=== PATIENT | female | born 1975 | race African-American/Black ===

== ENCOUNTER → 2018-05-17 | Outpatient (CLI) | payer OTHER | LOC: M SLEEP 19:59 | DX: G47.61 Periodic limb movement disorder (principal); R06.83 Snoring; R40.0 Somnolence | CPT/HCPCS: 95810 ==

== ENCOUNTER → 2018-12-23 | Outpatient (CLI) | payer OTHER | LOC: M RAD 16:59 | PROVIDERS: ATTEND Physician Assistant | DX: Z12.31 Encounter for screening mammogram for malignant neoplasm of breast (principal) ==

== ENCOUNTER 2020-04-12 17:01 | Emergency (ER) | payer OTHER ==
[~2020-04-12] VITALS: Ht 149.9 cm; Wt 61.1 kg
[2020-04-12] MEDS ORDERED: METH1TAB40 PO (17:10)
[2020-04-12] MEDS ORDERED: KETOROLAC 30 MG/ML 1ML VIAL IV ONE (18:00)
[2020-04-12] MEDS ORDERED: NS 1,000 ML IV ONE (18:00)
[2020-04-12 18:30] LABS: BASO % 0.4 % (0.0-1.0); EOS # 0.1 10^3/uL (0.0-0.5); EOS % 0.9 % (0.0-3.0); HEMATOCRIT 39.1 % (36.0-47.0); HEMOGLOBIN 12.6 g/dl (12.0-15.5); LYMPH # 2.3 10^3/uL (1.5-5.0); MEAN CORPUSCULAR HEMOGLOBIN 27.3 pg (27.0-33.0); MEAN CORPUSCULAR HGB CONC 32.2 g/dl (32.0-36.5); MEAN CORPUSCULAR VOLUME 84.8 fl (80.0-96.0); MONO # 0.3 10^3/uL (0.0-0.8); MONO % 4.1 % (0.0-5.0); NEUTROPHILS # 5.4 10^3/uL (1.5-8.5); NEUTROPHILS % 66.5 % (36.0-66.0); PLATELET COUNT, AUTOMATED 320 10^3/uL (150-450); RED BLOOD COUNT 4.61 10^6/uL (4.00-5.40); WHITE BLOOD COUNT 8.1 10^3/uL (4.0-10.0)
[2020-04-12 18:51] LABS: ALBUMIN 4.1 GM/DL (3.2-5.2); BILIRUBIN,DIRECT 0.1 MG/DL (0.0-0.2); BILIRUBIN,TOTAL 0.5 MG/DL (0.2-1.0); TOTAL PROTEIN 7.9 GM/DL (6.4-8.2)
--- NOTE | 2020-04-12 19:41 | REPVR ---
PROCEDURE INFORMATION: Exam: US Nonobstetric Pelvis; Complete Exam date and time: 04/12/2020 6:54 PM Age: 45 years old Clinical indication: Pelvic pain; Additional info: Llq abd pain, sharp, radiates to back TECHNIQUE: Imaging protocol: Transabdominal pelvic nonobstetric ultrasound. Complete exam. Real time ultrasound with image documentation. COMPARISON: No relevant prior studies available. FINDINGS: Uterus/cervix: The uterus is enlarged, measuring 14.3 x 5.3 x 6.2 cm. There is a large hypoechoic mass in the uterus which obscures or displaces the endometrium measuring 4.6 x 4.3 by 4.2 cm. This is mildly heterogeneous but predominantly hypoechoic. There is some internal color flow. The endometrium inferior to the uterine mass lesion measures 4 mm in thickness and is normal in echogenicity where visualized. Right adnexa: The right ovary is normal in size and echogenicity, measuring 3.5 x 2.1 x 2.2 cm. Left adnexa: The left ovary contains a 1.9 cm hypoechoic structure which may have some internal echoes but does not clearly have internal color flow. It is unclear whether the appearance of internal echoes is artifactual. This may represent a dominant follicle, although the questionable internal echoes make it difficult to exclude a small hemorrhagic cyst or endometrioma. Intraperitoneal space: No free fluid. IMPRESSION: 1. Enlarged uterus with large slightly heterogeneous but overall hypoechoic mass in the uterine fundus measuring 4.6 cm which obscures or displaces the endometrium. While this may represent a fundal fibroid, potentially with submucosal component, the less likely possibility of uterine neoplasm is not completely excluded. Suggest further characterization non emergently with female pelvic MR. 2. 1.9 cm hypoechoic structure in the left ovary which may contain some internal echoes but has no internal color flow. This may represent a dominant follicle. The appearance of internal echoes could be artifactual, but if real raises the possibility of a small hemorrhagic cyst or endometrioma. Electronically signed by: Robyn Avalos On 04/12/2020 19:41:56 PM
--- NOTE | 2020-04-12 19:55 | REP ---
INDICATION: LLQ pain. COMPARISON: None. TECHNIQUE: Single frontal view of the abdomen and pelvis is performed. FINDINGS: Bowel gas pattern is normal with no evidence of bowel obstruction. Multiple phleboliths are seen in the pelvis. The visualized osseous structures are unremarkable. IMPRESSION: Unremarkable KUB. <Electronically signed by Edson Granda > 04/12/201950
[2020-04-12] MEDS ORDERED: NAPR-837 PO (20:09)
[2020-04-12 20:16] VITALS: BP 138/84
--- NOTE | 2020-04-13 13:52 | ED PDOC ---
Post-Departure Follow-Up pelvic us faxed to [facility] for fu Sohail Venegas MD Apr 13, 2020 13:52
== END 2020-04-12 20:28 | disposition home or self-care (01) ==
LOC: M ED 17:01
DX: N85.8 Other specified noninflammatory disorders of uterus (principal); R10.32 Left lower quadrant pain; M54.5 Low back pain; F17.200 Nicotine dependence, unspecified, uncomplicated; Z87.39 Personal history of other diseases of the musculoskeletal system and connective tissue; Z87.59 Personal history of other complications of pregnancy, childbirth and the puerperium; Z79.899 Other long term (current) drug therapy
CPT/HCPCS: 74018; 76856; 80076; 81001; 83690; 85025; 96361; 96374; 99284; J1885

== ENCOUNTER → 2020-07-06 | Outpatient (CLI) | payer OTHER ==
[~2020-07-06] MED LIST: METH-1164 PO; NAPR-837 PO
--- NOTE | 2020-07-06 10:35 | REPMRS ---
Patient History The patient states she has not had a clinical breast exam in over a year. Family history of breast cancer in maternal grandmother. Digital Woman Screen Mammo: July 06, 2020 - Exam #: [id number] Bilateral CC and MLO view(s) were taken. Technologist: Mayte Meléndez, Technologist Prior study comparison: December 23, 2018, bilateral digital mammo screening bilat, performed at [facility]. FINDINGS: There are scattered fibroglandular densities. The Volpara volumetric breast density category is:B. There is a grouping of 5-6 predominantly punctate microcalcifications in the posterior 3rd of the right breast upper outer quadrant at approximately 11 o'clock which merits further evaluation. There has been no other change in the appearance of the mammogram from the prior studies. There is a mild amount of scattered fibroglandular density which is fairly symmetric. There is no other interval development of dominant mass, architectural distortion, or grouped microcalcification suggestive of malignancy. 3-D tomosynthesis shows no additional findings. Assessment: BI-RADS/ACR category 0 mammogram, Incomplete: Need additional imaging evaluation and/or prior mammograms for comparison. Recommendation Special view mammogram of the right breast. This patient's [facility] Lifetime Breast Cancer Risk is estimated at 15.7 %. This mammogram was interpreted with the aid of an FDA-approved computer-aided dectection system. Electronically Signed By: Prashant Sands MD 07/06/20 2155
== END ==
LOC: M WHC 09:15
PROVIDERS: ATTEND Physician Assistant Medical
DX: Z12.31 Encounter for screening mammogram for malignant neoplasm of breast (principal); N60.11 Diffuse cystic mastopathy of right breast; R92.8 Other abnormal and inconclusive findings on diagnostic imaging of breast
CPT/HCPCS: 77063; 77067; G0463

== ENCOUNTER → 2020-07-08 | Outpatient (CLI) | payer SELFPAY | LOC: M LABSMTC 13:29 | PROVIDERS: ATTEND Pediatrics | DX: Z20.822 Contact with and (suspected) exposure to COVID-19 (principal) ==

== ENCOUNTER → 2020-07-21 | Outpatient (CLI) | payer OTHER ==
--- NOTE | 2020-07-21 10:36 | REP ---
INDICATION: ADDL VIEWS/RIGHT BREAST. Recent screening mammography BI-RADS category 0 incomplete because of microcalcifications. Diagnostic imaging was recommended. COMPARISON: Comparison mammography 06 July 2020. 23 December 2018 mammography is also reviewed. TECHNIQUE: Magnified focal spot-compression CC, mL, and MLO views of the right breast are obtained. This mammogram was interpreted with the aid of an FDA-approved computer-aided detection system. FINDINGS: Scattered fibroglandular density pattern is again seen. Magnified focal spot-compression images confirm the presence of a grouping of microcalcifications which are predominantly punctate but of different sizes. There are 5-6 microcalcifications in a 1 cm grouping. As these are new, the should be considered as potentially suspicious. IMPRESSION: BIRADS/ACR category 4 suspicious right mammographic . micro calcific grouping confirmed. Histologic sampling is recommended.. This patient's Tyrer-Cuzick lifetime breast cancer risk assessment score is 6.8%. RECOMMENDATION: Stereotactic needle biopsy is recommended right breast for microcalcifications. Marker clip placement and post clip placement mammography recommended.. The patient letter being requested is M4. <Electronically signed by Prashant Sands > 07/21/20 [id number]
== END ==
LOC: M WHC 09:35
PROVIDERS: ATTEND Physician Assistant Medical
DX: R92.2 Inconclusive mammogram (principal); N60.11 Diffuse cystic mastopathy of right breast

== ENCOUNTER → 2020-08-16 | Outpatient (CLI) | payer OTHER ==
--- NOTE | 2020-08-16 10:03 | REP ---
INDICATION: RT BREAST MICROCALCIFICATIONS,POST STEREOTACTIC BIOPSY. Marker clip placement views. COMPARISON: Comparison mammography July 21, 2020 and July 06, 2020. TECHNIQUE: Craniocaudal and mediolateral views of the right breast are obtained. This mammogram was interpreted with the aid of an FDA-approved computer-aided detection system. FINDINGS: Craniocaudal and mediolateral views of the right breast demonstrate the needle biopsy marker clip in good position at the site where previous study showed the micro calcific grouping. There are fewer microcalcifications postprocedure, only 1 definite microcalcification persists. IMPRESSION: Marker clip in good position. <Electronically signed by Prashant Sands > 08/16/20 1000
--- NOTE | 2020-08-16 10:05 | REP ---
INDICATION: RT BREAST MICROCALCIFICATIONS,STEREOTACTIC BIOPSY. COMPARISON: Comparison mammography July 21, 2020. Micro calcific grouping right breast.. TECHNIQUE: Single specimen radiograph. FINDINGS: Specimen radiography demonstrates microcalcifications from the target grouping in 2 of the removed specimens. IMPRESSION: Specimen radiography demonstrates microcalcifications from the biopsy target. <Electronically signed by Prashant Sands > 08/16/20 1006
[2020-08-16 10:24] VITALS: BP 122/68
--- NOTE | 2020-08-16 15:27 | REP ---
INDICATION: RT BREAST MICROCALCIFICATIONS,STEREOTACTIC BIOPSY. COMPARISON: None. TECHNIQUE: The procedure was performed under the direct supervision of Dr. Sands. The patient has a history of a grouping of 5-6 predominantly punctate microcalcifications in the posterior 3rd of the right breast upper outer quadrant seen on a previous mammogram dated 07/21/2020. The risks and benefits of the procedure were explained to the patient and informed consent was obtained. A craniocaudal approach was utilized. The calcifications were localized using stereotactic mammographic guidance. 1% Xylocaine was used as a local anesthetic. An 10 gauge, suction assisted Mammotome needle was inserted and 6 core biopsy samples were obtained. Specimen radiograph demonstrates the presence of calcifications to be within the specimen. A marker clip (HydroMARK shape 3) was placed at the biopsy site. The patient tolerated the procedure well and there were no immediate complications. After the appropriate amount of monitored convalescence, the patient was discharged from the department. FINDINGS: None IMPRESSION: Stereotactic right breast biopsy with marker clip placement. (HydroMARK shape 3) <Electronically signed by Angelito Jensen > 08/16/20 1516 <Electronically signed by Prashant Sands > 08/16/20 1520
== END | disposition home or self-care (01) ==
LOC: M WHCPRO 08:53
PROVIDERS: ATTEND Physician Assistant Medical
DX: N60.11 Diffuse cystic mastopathy of right breast (principal); R92.0 Mammographic microcalcification found on diagnostic imaging of breast

== ENCOUNTER 2020-09-17 20:44 | Emergency (ER) | payer OTHER ==
[~2020-09-17] VITALS: Ht 149.9 cm; Wt 55.9 kg
[2020-09-17] MEDS ORDERED: KETOROLAC 30 MG/ML 1ML VIAL IM ONE (21:20)
[2020-09-17] MEDS ORDERED: KETO10TAB PO (21:20)
[2020-09-17] MEDS ORDERED: ACETAMINOPHEN TAB 650MG DOSE (2X325MG) PO ONE (21:20)
[2020-09-17] MEDS ORDERED: MECLIZINE 25 MG TABLET PO ONE (21:40)
[2020-09-17 22:16] VITALS: BP 121/72
== END 2020-09-17 22:18 | disposition home or self-care (01) ==
LOC: M ED 20:44
DX: M51.36 Other intervertebral disc degeneration, lumbar region (principal); M54.42 Lumbago with sciatica, left side
CPT/HCPCS: 96372; 99283; J1885